=== PATIENT | male | born 1930 | race Caucasian/White ===

== ENCOUNTER 2020-02-20 23:49 | Inpatient (IN) | payer BC, MEDICARE ==
[~2020-02-20] VITALS: Ht 170.2 cm; Wt 70.8 kg
--- NOTE | 2020-02-20 23:55 | NUR ---
PATIENT BIB [facility] FROM HOME FOR SHORTNESS OF BREATH, UPON ARRIVAL PATIENT ON 15L NRB SATING AT 95%.
[2020-02-21] MEDS ORDERED: IV NORMAL SALINE 500 ML BAG IV ONE
--- NOTE | 2020-02-21 | NUR ---
DR. DOVER AT BEDSIDE FOR MSE
--- NOTE | 2020-02-21 00:09 | NUR ---
Attempted to reach /caregiver at [phone] to get more information for patient. Left message, awaiting call back.
[2020-02-21] MEDS ORDERED: MORPHINE SULFATE 2 MG/1 ML DISP.SYRIN IV ONE (00:15)
[2020-02-21] MEDS ORDERED: BUMETANIDE 1 MG/4 ML VIAL IV ONE (00:15)
[2020-02-21] MEDS ORDERED: MORPHINE SULFATE 2 MG/1 ML DISP.SYRIN ONE (00:20)
[2020-02-21] MEDS ORDERED: BUMETANIDE 1 MG/4 ML VIAL ONE (00:20)
[2020-02-21 00:37] LABS: ALANINE AMINOTRANSFERASE 10 U/L (16-63); ALKALINE PHOSPHATASE 103 U/L (50-136); ASPARTATE AMINOTRANSFERASE 8 U/L (15-37); BILIRUBIN,DIRECT 0.2 mg/dL (0.0-0.2); BILIRUBIN,TOTAL 0.4 mg/dL (0.2-1.0); CARBON DIOXIDE 29 mmol/L (21-32); CHLORIDE 102 mmol/L (98-107); CREATININE 4.4 mg/dL (0.6-1.3); GLUCOSE 232 mg/dL (74-106); LIPASE 328 U/L (73-393); POTASSIUM 5.7 mmol/L (3.5-5.1); TOTAL PROTEIN, SERUM 7.1 g/dL (6.4-8.2); UREA NITROGEN, BLOOD 58 mg/dL (7-18)
[2020-02-21 00:56] LABS: BASOPHILS # (AUTO) 0.1 K/uL (0.0-8.0); BASOPHILS % (AUTO) 0.7 % (0.0-2.0); EOSINOPHILS # (AUTO) 0.1 K/uL (0.0-0.7); HEMATOCRIT 38.6 % (36.7-47.1); HEMOGLOBIN 11.9 g/dL (12.5-16.3); LYMPHOCYTES # (AUTO) 0.7 K/uL (20.0-40.0); LYMPHOCYTES % (AUTO) 5.5 % (20.5-51.5); MEAN CORPUSCULAR HEMOGLOBIN 29.1 uug (23.8-33.4); MEAN CORPUSCULAR HGB CONC 31 g/dL (32.5-36.3); MEAN CORPUSCULAR VOLUME 94.2 fL (73.0-96.2); MONOCYTES % (AUTO) 8.3 % (0.0-11.0); NEUTROPHILS # (AUTO) 10.6 K/uL (1.8-8.9); NEUTROPHILS % (AUTO) 84.5 % (38.5-71.5); PLATELET COUNT (AUTO) 228 K/uL (152-348); WHITE BLOOD COUNT (AUTO) 12.6 K/uL (3.6-10.2)
--- NOTE | 2020-02-21 01:11 | NUR ---
Unable to advance F/C, resistance met. Dr. Campbell aware.
--- NOTE | 2020-02-21 01:12 | NUR ---
Incontinence care done, pressure injury to coccyx noted.
--- NOTE | 2020-02-21 01:12 | NUR ---
Note marie in ED - 02/21/20 at 0112 by [id number] Incontinence care done, stage 3 noted on coccyx.
[2020-02-21] MEDS ORDERED: LOSA25TA27 PO (01:47)
[2020-02-21] MEDS ORDERED: ALLO100T PO (01:47)
[2020-02-21] MEDS ORDERED: CARV12.5 PO (01:47)
[2020-02-21] MEDS ORDERED: APIX2.5T PO (01:47)
[2020-02-21] MEDS ORDERED: HYDROCODONE/APAP 5-325MG TABLET PO PRN (02:00)
[2020-02-21] MEDS ORDERED: MAGNESIUM HYDROXIDE 30 ML LIQUID UDC PO PRN (02:00)
[2020-02-21] MEDS ORDERED: ACETAMINOPHEN 325 MG TABLET PO PRN (02:00)
[2020-02-21] MEDS ORDERED: Z GUARD REMEDY PASTE 57 GM TUBE TOP PRN (02:00)
[2020-02-21] MEDS ORDERED: ONDANSETRON 4 MG/2 ML VIAL IV PRN (02:00)
--- NOTE | 2020-02-21 02:36 | NUR ---
O2 sat 89-90% on 15L NRB, RR 30's, Dr. Campbell at bedside.
--- NOTE | 2020-02-21 02:38 | NUR ---
Adam RT notified of new order.
--- NOTE | 2020-02-21 02:50 | NUR ---
Adam RT at bedside.
--- NOTE | 2020-02-21 03:15 | NUR ---
patient rate of breathing increased, O2 low on bipap and patient hypotensive, Dr. Campbell at bedside, will intubate patient.
--- NOTE | 2020-02-21 03:37 | NUR ---
Versed 4mg and 80mg succinylcholine given IVP, patient intubated size 7.5 22cm at the lip. Vent setting AC 20, TV 500, Peep 5, 100% O2
--- NOTE | 2020-02-21 03:38 | NUR ---
Versed 4mg and 80mg succinylcholine given per DR. Campbell orders, RT Adam at bedside for intubation.
[2020-02-21] MEDS ORDERED: NOREPINEPHRINE BITARTRATE 8 MG in IV NORMAL SALINE 250 ML IV ONE (03:45)
[2020-02-21] MEDS ORDERED: PROPOFOL 100 ML IV PRN ×2 (03:45→04:00)
--- NOTE | 2020-02-21 03:55 | NUR ---
CALLED TO ER @ [facility]. 02:50 - 3 Nataly MULLINS, PT ON NRB MASK @ 100%, LABORED , ASKED BY DR DOVER, TO PLACE PT ON BI/PAP WITH FULL LARGE MASK, SETTINGS, 15, R16, 100%, , PT WITH DE SAT 84%, THEN ASKED BY DR DOVER TO INTUBATE PT, WITH 7.5 ET/TUBE - 22 LIP LINE, ANCHOR FAST IN PLACE AND SECURED, INITIAL SETTINGS FOR COLLINS VENT - A/C 20, VT 500ML, PEEP 5, 100%, AND MONITOR, AMBU BAG AT BEDSIDE.Jalyn BROWN EMPLOYEE DEVELOPMENT DIRECTOR Addendum: 02/21/20 at 0408 by MALVIN BROWN RT Amended: Links added.
[2020-02-21] MEDS ORDERED: PROPOFOL 100 ML ONE ×2 (03:57→17:01)
[2020-02-21] MEDS ORDERED: NOREPINEPHRINE BITARTRATE 8 MG in IV NORMAL SALINE 242 ML IV PRN (04:00)
--- NOTE | 2020-02-21 04:00 | NUR ---
Barbara Trujillo PERFORMANCE TEST CONSULTANT notified.
[2020-02-21] MEDS ORDERED: NOREPINEPHRINE BITARTRATE 4 MG/4 ML VIAL IV ONE ×6 (04:02→06:53)
--- NOTE | 2020-02-21 04:30 | NUR ---
HR elevated, amiodarone IV given per order.
[2020-02-21] MEDS ORDERED: AMIODARONE HCL IV 150 MG in IV DEXTROSE 5% 100 ML IV ONE (04:45)
[2020-02-21] MEDS ORDERED: AMIODARONE HCL 150 MG/3 ML VIAL IV ONE ×2 (04:53→06:09)
--- NOTE | 2020-02-21 05:49 | NUR ---
Yael salazar in [facility] - 02/21/20 at 0552 by DIANELYS According to Malena, Nursing Incident Coordinator, patient is to be held in ER till day shift, but report is to be given prior to leaving.
[2020-02-21] MEDS ORDERED: PIPERACILLIN SODIUM/TAZOBACTAM 3.375 G in IV DEXTROSE 5% 50 ML IV SCH (06:00)
--- NOTE | 2020-02-21 06:17 | NUR ---
Barbara Trujillo ROTARY ENGINE ASSEMBLER at bedside. Per Barbara don't give amiodarone drip at this time due to low blood pressure.
[2020-02-21] MEDS ORDERED: NOREPINEPHRINE BITARTRATE 32 MG in IV NORMAL SALINE 218 ML IV PRN (06:30)
--- NOTE | 2020-02-21 06:50 | NUR ---
Stop propofol per Barbara Trujillo SCRAP DROP CRANE OPERATOR verbal order.
--- NOTE | 2020-02-21 07:00 | NUR ---
recieved pt in bed, on vent/monitor. pt extremely hypotensive. attempted to check the bp on rue and ble, unable to read.
--- NOTE | 2020-02-21 07:20 | NUR ---
report given to KIM Cruz
[2020-02-21] MEDS ORDERED: IV NORMAL SALINE 1000 ML BAG IV ONE (07:45)
[2020-02-21] MEDS ORDERED: PHENYLEPHRINE IV 100 MG in IV NORMAL SALINE 240 ML IV PRN ×2 (07:45→18:45)
--- NOTE | 2020-02-21 08:04 | NUR ---
neosynephrine drip started.
--- NOTE | 2020-02-21 08:04 | NUR ---
neosynephrine drip started at 0.5 mcg/kg/min. per protocol
--- NOTE | 2020-02-21 08:51 | NUR ---
bp dropped to 49/32, increased the neosynephrine to 1mcg/kg/min
[2020-02-21] MEDS ORDERED: CARVEDILOL 12.5 MG TABLET PO SCH (09:00)
[2020-02-21] MEDS ORDERED: LOSARTAN POTASSIUM 25 MG TABLET PO SCH (09:00)
--- NOTE | 2020-02-21 09:15 | NUR ---
rt at bedside caring for pt. small amount of serosanguin color d/nawaf noticed on the trach tubing,
--- NOTE | 2020-02-21 09:34 | NUR ---
margarita Helms, pt daughter called and was updated with pt situation. her phone number is [phone]. she said that she has the power of managing attorney.
[2020-02-21] MEDS ORDERED: VANCOMYCIN IV 1,000 MG in IV DEXTROSE 5% 250 ML IV ONE (10:30)
--- NOTE | 2020-02-21 10:30 | NUR ---
moved pt to room 4b to accomodate for dialysis.
[2020-02-21] MEDS: APIXABAN 2.5 MG TABLET PO SCH ×2 (12:00→21:00)
--- NOTE | 2020-02-21 14:00 | NUR ---
LICO CARUSO STARTED TO RT AC
[2020-02-21] MEDS: PIPERACILLIN/TAZO 2.25 G in IV DEXTROSE 5% 50 ML IV SCH ×2 (14:27→18:21)
--- NOTE | 2020-02-21 15:15 | NUR ---
VANCO IVPM 1 GM INFUSED TO RT AC
--- NOTE | 2020-02-21 15:38 | NUR ---
dialysis in progress, pt resting.
--- NOTE | 2020-02-21 16:18 | NUR ---
DIALYSIS NURSE STED HE DID A PARTIAL DIALYSIS, THAT THERE IS AN OCCLUSION AND THAT ARELI HENRY NOTIFIED, PRATIBHA CALDERA AT THE BEDSIDE.
[2020-02-21] MEDS ORDERED: SODIUM POLYSTYRENE SULFONATE ENEMA 30 G/120 ML BOTTLE RC ONE ×2 (16:45→18:13)
[2020-02-21] MEDS ORDERED: LORAZEPAM 2 MG/1 ML VIAL IV ONE (16:45)
[2020-02-21] MEDS ORDERED: PROPOFOL 50 ML IV PRN (17:00)
[2020-02-21] MEDS ORDERED: PHENYLEPHRINE IV 50 MG in IV NORMAL SALINE 245 ML IV PRN (18:45)
--- NOTE | 2020-02-21 18:46 | NUR ---
PT RESTING ,EYES CLOSED,MONITOR SHOWS NSR
--- NOTE | 2020-02-21 21:13 | NUR ---
PHARMACY NOT; ELIQUIS NOT ADMINISTERED, PT ENTUBATED, NO G-TUBE OR NG TUGE.
[2020-02-22] MEDS: PIPERACILLIN/TAZO 2.25 G in IV DEXTROSE 5% 50 ML IV SCH (00:01)
--- NOTE | 2020-02-22 02:12 | NUR ---
PT RESTING EYES CLOSED, VENT IN USE, LEVOPHED DRIP AT 1MCG/MIN/KG, NEOSYNEPHRINE AT 3MCG/KG/MIN AND PROFOFOL AT 3MCG/KG/MIN.
[2020-02-22] MEDS ORDERED: PHENYLEPHRINE IV 100 MG in IV NORMAL SALINE 240 ML IV PRN (04:30)
[2020-02-22 05:21] LABS: ABG HCO3 17.8 mmol/L; ABG PCO2 26.9 mmHg (35.0-45.0); ABG PH 7.438 (7.350-7.450); ABG PO2 82.2 mmHg (75.0-100.0); ABG SITE RIGHT BRACHIAL; ABG TOTAL HEMOGLOBIN 12.3 G/dL (13.5-18.0); COHb 1.1 % (0.5-1.5); MetHb 0.1 % (0.0-1.5); O2Hb 95.7 % (94.0-97.0); VENT MODE VENT - A/C; VT, ABG 500 mL
[2020-02-22] MEDS ORDERED: VANCOMYCIN IV 500 MG in IV DEXTROSE 5% 100 ML IV PRN (06:00)
[2020-02-22 07:03] LABS: BASOPHILS # (AUTO) 0.1 K/uL (0.0-8.0); BASOPHILS % (AUTO) 0.4 % (0.0-2.0); HEMATOCRIT 35.6 % (36.7-47.1); LYMPHOCYTES % (AUTO) 3.6 % (20.5-51.5); MEAN CORPUSCULAR HEMOGLOBIN 29.1 uug (23.8-33.4); MEAN CORPUSCULAR HGB CONC 31 g/dL (32.5-36.3); MEAN CORPUSCULAR VOLUME 93.8 fL (73.0-96.2); MONOCYTES # (AUTO) 1.4 K/uL (2.0-10.0); MONOCYTES % (AUTO) 5.5 % (0.0-11.0); NEUTROPHILS # (AUTO) 23.7 K/uL (1.8-8.9); NEUTROPHILS % (AUTO) 90.5 % (38.5-71.5); PLATELET COUNT (AUTO) 242 K/uL (152-348); RED BLOOD CELL COUNT(AUTO) 3.79 MIL/uL (4.06-5.63); WHITE BLOOD COUNT (AUTO) 26.2 K/uL (3.6-10.2)
[2020-02-22 07:19] LABS: VANCOMYCIN,RANDOM 13.7 ug/mL (18.0-26.0)
--- NOTE | 2020-02-22 07:27 | NUR ---
SBAR REPORT TO PRATIBHA ALVAREZ-REGISTRY
--- NOTE | 2020-02-22 07:34 | NUR ---
RUBIN DOLPHIN TRAINER WAS CALLED WITH INFORMATION OF LACTIC ACID = 3.4, AND ELEVATED TROPONIN RESULTS.
[2020-02-22 07:49] LABS: ALANINE AMINOTRANSFERASE 12 U/L (16-63); ALKALINE PHOSPHATASE 82 U/L (50-136); ASPARTATE AMINOTRANSFERASE 14 U/L (15-37); BILIRUBIN,TOTAL 0.5 mg/dL (0.2-1.0); CARBON DIOXIDE 21 mmol/L (21-32); CHLORIDE 104 mmol/L (98-107); CHOLESTEROL 118 mg/dL (<200); GLUCOSE 211 mg/dL (74-106); HDL CHOLESTEROL 31 mg/dL (40-60); MAGNESIUM 1.9 mg/dL (1.8-2.4); PHOSPHOROUS 4.7 mg/dL (2.5-4.9); POTASSIUM 6.1 mmol/L (3.5-5.1); TRIGLYCERIDES 120 MG/DL (30-150); UREA NITROGEN, BLOOD 70 mg/dL (7-18)
[2020-02-22] MEDS ORDERED: PIPERACILLIN/TAZO 2.25 G in IV DEXTROSE 5% 50 ML IV SCH (08:00)
[2020-02-22] MEDS: APIXABAN 2.5 MG TABLET PO SCH (09:00)
--- NOTE | 2020-02-22 09:38 | NUR ---
89 years old male with sob intubated, hypotensive, tachy, on levophed/neosynephrine will continue to monitor.
--- NOTE | 2020-02-22 10:52 | NUR ---
builder's labourer reports lactic acid 5.3 admitting MD page.
[2020-02-22 11:39] LABS: THYROID STIMULATING HORMONE 5.096 mIU/mL (0.358-3.740)
--- NOTE | 2020-02-22 11:54 | NUR ---
patient in rapid a-fib, no acute changes condition critical will continue to monitor. Dr Rodriguez postdoctoral scientist visit patient at bedside.
--- NOTE | 2020-02-22 12:40 | NUR ---
Full telephone SBAR report received by ER Registry.
--- NOTE | 2020-02-22 13:58 | NUR ---
MASON Johnson here to see pt for HD catheter placement.
[2020-02-22 14:52] VITALS: BP 0/0
--- NOTE | 2020-02-22 14:52 | NUR ---
Pt . Pt apneic for 5 minutes. Pupils fixed and dilated. No audible heart tones, breath sounds for 1 minute. No palpable pulses for 1 minute. No corneal reflexes. , Amparo (daughter), and Bog Worker notified. Awaiting return call from daughter regarding placement for pt. Addendum: 02/22/20 at 1530 by BHARGAVI BARNES RN [employer] already made aware. Case #: [id number]
--- NOTE | 2020-02-22 16:20 | NUR ---
Called Zohreh Smith [facility]. Awaiting return call for time of fruit picker.
--- NOTE | 2020-02-22 17:44 | NUR ---
Pt brought down to the [facility]. All belongings brought down with the pt and sent to nursing office.
[2020-02-22] MEDS ORDERED: VANCOMYCIN IV 1,000 MG in IV DEXTROSE 5% 250 ML IV ONE (18:00)
[2020-02-24] MEDS ORDERED: MIDAZOLAM HCL 2 MG/2 ML VIAL IV PRN (19:00)
== END 2020-02-22 18:13 | disposition expired | DRG 871 ==
LOC: ER 23:53 → TRANSITION 02-21 04:00 → CCU 02-22 14:07
PROVIDERS: ADMIT Nurse Practitioner Acute Care; ATTEND Internal Medicine
PROC: 5A1D70Z Performance of Urinary Filtration, Intermittent, Less than 6 Hours Per Day (ICD-10-PCS; principal; 2020-02-21)
PROC: 0BH18EZ Insertion of Endotracheal Airway into Trachea, Via Natural or Artificial Opening Endoscopic (ICD-10-PCS; 2020-02-21)
PROC: 5A1945Z Respiratory Ventilation, 24-96 Consecutive Hours (ICD-10-PCS; 2020-02-21)
PROC: 06H033Z Insertion of Infusion Device into Inferior Vena Cava, Percutaneous Approach (ICD-10-PCS; 2020-02-21)
PROC: B549ZZA Ultrasonography of Inferior Vena Cava, Guidance (ICD-10-PCS; 2020-02-21)
PROC: 06HY33Z Insertion of Infusion Device into Lower Vein, Percutaneous Approach (ICD-10-PCS; 2020-02-22)
DX: A41.9 Sepsis, unspecified organism (principal); J96.01 Acute respiratory failure with hypoxia; E43 Unspecified severe protein-calorie malnutrition; G92 Toxic encephalopathy; R65.21 Severe sepsis with septic shock; N18.6 End stage renal disease; J69.0 Pneumonitis due to inhalation of food and vomit; D68.69 Other thrombophilia; I13.2 Hypertensive heart and chronic kidney disease with heart failure and with stage 5 chronic kidney disease, or end stage renal disease; I48.20 Chronic atrial fibrillation, unspecified; J98.11 Atelectasis; J93.81 Chronic pneumothorax; D63.8 Anemia in other chronic diseases classified elsewhere; E11.65 Type 2 diabetes mellitus with hyperglycemia; E11.22 Type 2 diabetes mellitus with diabetic chronic kidney disease; E87.5 Hyperkalemia; Z20.828 Contact with and (suspected) exposure to other viral communicable diseases; M10.9 Gout, unspecified; Z79.01 Long term (current) use of anticoagulants; Z95.1 Presence of aortocoronary bypass graft; Z99.2 Dependence on renal dialysis; E88.09 Other disorders of plasma-protein metabolism, not elsewhere classified; Z68.24 Body mass index [BMI] 24.0-24.9, adult; I25.10 Atherosclerotic heart disease of native coronary artery without angina pectoris; I80.8 Phlebitis and thrombophlebitis of other sites; I50.9 Heart failure, unspecified; T17.990A Other foreign object in respiratory tract, part unspecified in causing asphyxiation, initial encounter; X58.XXXA Exposure to other specified factors, initial encounter; Y93.9 Activity, unspecified; Y92.009 Unspecified place in unspecified non-institutional (private) residence as the place of occurrence of the external cause
CPT/HCPCS: 36415; 36569; 36600; 70030-TC; 71045; 83605; 83690; 83735; 84100; 84443; 85025; 85730; 90937; 93005; 94002; 94003; G0378; J0282; J2060; J2270; J2370; J2543; J3370; J3490; J7030; J7040; J7050; J7060; U0003